=== PATIENT | male | born 1970 | race Caucasian/White ===

== ENCOUNTER 2025-03-05 06:18 | Emergency (ER) | payer OTHER, SELFPAY ==
[2025-03-05 06:19] VITALS: BP 102/73; PULSE 53; RESP 16; TEMP 36.7; O2SAT 100; BMI 23.8
--- NOTE | 2025-03-05 07:16 | CT_ITS ---
PROCEDURE: ORB SELLA POST FOSSA EAR W/O 03/05/2025 REASON FOR EXAM: ACUTE VERTIGO, CHRONIC LEFT EAR SX TECHNIQUE: ORB SELLA POST FOSSA EAR W/O CONTRAST: None One or more dose reduction techniques were used (e.g., Automated exposure control, adjustment of the mA and/or kV according to patient size, use of iterative reconstruction technique). RADIATION DOSE SUMMARY: CTDlvol: 67.58 mGy DLP: 734.52 mGycm COMPARISON: None FINDINGS: Globes: Unremarkable Extraocular Muscles: Unremarkabl Orbits: Unremarkable The mastoid bones are unremarkable. The middle ear cavity is unremarkable. Bones: Unremarkable Other: Visualized paranasal sinuses and intracranial structures: Unremarkable CT/Orb Sella Post Fossa Ear w/o IMPRESSION: No acute abnormality is seen. Reading Location: [place] [id number]
--- NOTE | 2025-03-05 07:18 | EDS_ITS ---
HPI History of Present Illness Chief Complaint: Abd Pain Informant: patient, spouse/S.O. and EMS Narrative Narrative: 54-year-old Religion male presenting for vomiting for 2 days. He is a fairly poor informant. He denies having any abdominal pain. No diarrhea, no fevers or chills, no known sick contacts, no suspicious food intake and no travel out of the area. He does not offer any other information but after performing ROS, it seems that he has been nauseated off and on for the past 9 days, and has been having episodes of dizziness where he feels like things are spinning and he is off balance and that has been worse for the past 2 days and linked to the episodes of nausea and vomiting. As I first evaluated him he is vomiting, and confirms that the dizziness was more prominent right then. Some positions are worse than others but he cannot remember exactly how or what ones. He states that he has had some left ear discomfort since last winter. PFSH PFSH Medical History no medical history Home Medications ?Medication ?Instructions ?Recorded ?Last Taken ?Type amoxicillin 875 mg-potassium 875 mg PO Q12H #20 TABLET S 03/05/25 Unknown Rx clavulanate 125 mg tablet meclizine 25 mg tablet 25 mg PO TID PRN dizziness # 20 tabs 03/05/25 Unknown Rx multivitamin 1 tab PO DAILY 03/05/25 Unkn own History promethazine 25 mg tablet 25 mg PO Q6H PRN PRN Nausea #15 03/05/25 Unknown Rx TABLETS sertraline 25 mg tablet (Zoloft) 25 mg PO DAILY Unknown History Allergy/AdvReac Type Severity Reaction Status Date / Time No Known Allergies Allergy Verified 03/05/25 06:24 Social History Smoking Status: Never smoker ROS ROS ED Constitutional Constitutional ED: Denies chills or fever(s) Eyes Eyes: Denies change in vision or diplopia ENT ENT ED: Reports other Details: Intermittent dizziness. Left ear discomfort but denies pain or discharge. Sometimes has trouble hearing out of the left ear. ; Denies ear pain, rhinorrhea or sore throat Cardiovascular Cardiovascular: Denies chest pain or palpitations Respiratory/Chest Respiratory/Chest: Denies cough or dyspnea Gastrointestinal Gastrointestinal: Reports nausea and vomiting; Denies abdominal pain or diarrhea Genitourinary Genitourinary ED: Denies dysuria or hematuria Musculoskeletal Musculoskeletal: Denies back pain or neck pain Integumentary Denies abscess or rash Neurologic Neurologic: Reports as per HPI, abnormal gait, abnormal hearing, disequilibrium and dizziness; Denies headache(s), paresthesias or weakness Psychiatric Psychiatric: Denies anxiety or suicidal thoughts EXAM Physical Exam Const Vital Signs: 03/05/25 06:19 03/05/25 08:19 Temperature 98.0 F Temperature Source Oral Pulse Rate 53 L 50 L Respiratory Rate 16 Blood Pressure 102/73 96/47 L Blood Pressure Mean 82 63 Pulse Ox 100 Oxygen Delivery Method Room Air Positive well nourished and well developed General Appearance ED: well developed and NAD HEENT Reports moist mucous membranes normocephalic and atraumatic Eyes PERRL and EOMs intact bilaterally Eyes Narrative: No direction change nystagmus but there is right horizontal nystagmus. No vertical or rotatory nystagmus. Visual dominguez are intact. Neck full ROM and supple Resp normal respiratory effort and clear to auscultation bilaterally Cardio regular rate, regular rhythm and no murmurs Rate: Negative for bradycardia or tachycardic GI non-tender and non-distended Auscultation: normoactive bowel sounds Palpation: soft Back/Spine no CVA tenderness General Back: other FROM Extremity normal to inspection General Extremety ED: Negative for edema, pulses abnormal or tenderness General Extremity: Negative for edema or pulses abnormal Neuro oriented x3, CN's II-XII intact bilaterally and no sensory deficits noted Neuro Narrative: Abnormal jolt test. Normal skew test. Normal [id number] and [id number] bilaterally. Sensorium / Orientation: awake and alert Motor Exam: strength 5/5 throughout Psych mental status grossly normal Skin no rashes or lesions noted and no wounds MDM MDM MDM Narrative Medical decision making narrative: Patient seems to be having peripheral vertigo, and chronic left ear symptoms although he is not having pain right now, his left TM looks like he could have an effusion and there is some erythema which may indicate infection. Given the chronicity of the symptoms I did a CT, I reviewed the images and the results which I agree with, it is unremarkable. In the meantime, labs were obtained which were unremarkable and he was given IV Zofran, meclizine, and on reevaluation he is not really not feeling any better even though he is not vomiting anymore. Therefore he was additionally given some benzodiazepine and Reglan IV along with some IV fluids because of vomiting for couple days and family concerned about him being a little dehydrated; he was a little bit prerenal. The medicines and fluids really helped him feel better after this and he is able to move around without feeling vertiginous. When I spoke with the family about all of this and my recommendation that he be referred to otolaryngology, at this point they state that his doctor has been making appointments for ENT but they keep getting canceled and moved, he was supposed to have an appointment tomorrow but it got moved to next week, the same day that his doctor has apparently set him up for an MRI, presumably of the brain. At this time I think reasonable to treat him empirically for a possible left otitis media given the asymmetry of the TM given its appearance, as well as symptomatic treatment for the vertigo and having him see ENT next week as scheduled. Also will prescribe him some promethazine for nausea. Lab Data Attestation: I reviewed the patient's lab results. Labs: Laboratory Results - last 24 hr 03/05/25 05:45 WBC 8.6 RBC 5.46 Hgb 16.0 Hct 46.3 MCV 84.8 MCH 29.3 MCHC 34.6 RDW Std Deviation 38.7 RDW Coeff of Regina 12.6 Plt Count 182 MPV 10.4 Immature Gran % (Auto) 0.200 Neut % (Auto) 67.5 Lymph % (Auto) 25.1 Jewell % (Auto) 6.7 Eos % (Auto) 0.3 Baso % (Auto) 0.2 Absolute Neuts (auto) 5.8 Absolute Lymphs (auto) 2.16 Nucleated RBC % 0 Sodium 137 Potassium 4.0 Chloride 100 Carbon Dioxide 23.6 Anion Gap 13 BUN 21 H Creatinine 0.93 Estim Creat Clear Calc 76.03 Est GFR (MDRD) Non-Af 97 BUN/Creatinine Ratio 22.4 H Glucose 105 H Calcium 10.0 Radiography Diagnostic Testing: Clinical Impression(s) from Imaging Studies CT Orbit Sella Inner 03/05/25 07:16 IMPRESSION: No acute abnormality is seen. Reading Location: [facility] Discharge Plan Triage Chief Complaint: Abd Pain ED Provider: Joseluis Jean Dx/Rx/DC Orders Clinical Impression: Peripheral vertigo involving left ear, Acute left otitis media, Mild dehydration Instructions: Vertigo Inner Ear Problems, ED Otitis Media Adult Prescriptions: New meclizine 25 mg tablet 25 mg PO TID PRN (Reason: dizziness) Qty: 20 0RF promethazine 25 mg tablet 25 mg PO Q6H PRN PRN (Reason: Nausea) Qty: 15 0RF amoxicillin-pot clavulanate 875-125 mg tablet 875 mg PO Q12H Qty: 20 0RF No Action sertraline [Zoloft] 25 mg tablet 25 mg PO DAILY multivitamin Tablet 1 tab PO DAILY Primary Care Provider: David Montez Referrals: David Montez DO [Primary Care Provider] - (and ENT as scheduled) Print Language: Irish Disposition Disposition: Home, Self Care
[2025-03-05 07:36] LABS: Hematocrit 46.3 % (40-54); Hemoglobin 16.0 g/dL (13.0-16.5); Immature Granulocytes Count 0.020 X10^3/uL (0.0-0.0); Mean Corp Hgb Conc 34.6 g/dL (32-36); Mean Corpuscular Volume 84.8 fL (80-94); Mean Platelet Vol. 10.4 fl (6.2-12.0); NRBC Flagged by Analyzer 0 % (0-5); Platelet Count 182 K/mm3 (150-450); RBC Distribution Width CV 12.6 % (11.6-14.6); RBC Distribution Width SD 38.7 fl (35.1-43.9); Red Blood Count 5.46 M/mm3 (4.6-6.2); White Blood Count 8.6 K/mm3 (4.4-11.0)
[2025-03-05 08:07] LABS: Anion Gap 13 (5-15); BUN 21 mg/dL (4-19); BUN/Creat Ratio 22.4 RATIO (10-20); Calcium,Total 10.0 mg/dL (7.6-11.0); Carbon Dioxide 23.6 mmol/L (21.0-32.0); Chloride 100 mmol/L (98-108); Estimated Creatinine Clearance 76.03 ml/min (50-250); Glucose 105 mg/dL (70-99); Potassium 4.0 mmol/L (3.3-5.1)
[2025-03-05 08:19] VITALS: BP 96/47; PULSE 50
[2025-03-05] MEDS: 0.9% Normal Saline (1000mL) 1,000 ML 999 ML IV (09:14)
[2025-03-05] MEDS: Lorazepam 2 MG/ML WCH Syringe 0.5 MG IV (09:14)
[2025-03-05 10:00] VITALS: BP 102/64; PULSE 54
[2025-03-05 11:03] VITALS: BP 107/67; PULSE 58; RESP 15; TEMP 36.6; O2SAT 100
== END 2025-03-05 11:04 | disposition home or self-care (01) ==
PROVIDERS: Emergency Provider Emergency Medicine; PCP Family Medicine; Visit Provider Emergency Medicine
DX: H66.92 Otitis media, unspecified, left ear (principal); R11.2 Nausea with vomiting, unspecified; H81.392 Other peripheral vertigo, left ear
CPT/HCPCS: 70480; 80048; 85025; 96361; 96374; 96375; 99285; J2405

== ENCOUNTER 2025-03-11 05:17 | Emergency (ER) | payer OTHER, SELFPAY ==
[2025-03-11] VITALS (23 sets, daily range): BP systolic 117–158; BP diastolic 77–104; PULSE 46–123; RESP 12–24; TEMP 35–36.6; O2SAT 97–100; BMI 24.3
--- NOTE | 2025-03-11 05:25 | CT_ITS ---
EXAM: NONCONTRAST CT SCAN OF THE HEAD TECHNIQUE: Serial axial series through the head were obtained without contrast. 2-D coronal and sagittal reformats were then obtained. FINDINGS: Brain: There is a 2.8 x 3.0 by 3.1 cm circumscribed dense mass in the left cerebellopontine angle with an adjacent 3.6 x 2.3 cm low-density component with effacement of the 4th ventricle, miriam and midbrain and a component of hemorrhage at the anterior inferior margin. Paranasal sinuses: Well-aerated Mastoid air cells: Well-aerated. Calvarium: The bony calvarium is intact. Orbits: The bilateral globes are symmetric, without retrobulbar compressive mass lesion or hemorrhage. CT/Brain/Head without Contrast IMPRESSION: There is a 2.8 x 3.0 by 3.1 cm circumscribed dense mass in the left cerebellopo ntine angle with an adjacent 3.6 x 2.3 cm low-density component with effacement of the 4th ventricle, miriam and midbrain a nd a component of hemorrhage at the anterior inferior margin. The differential includes aneurysm or tumor with acute hemorr hagic components. Emergent neurosurgical consultation is recommended. Critical results were discussed with Dr. Boaz Bowie by Dr. Akbar at the t [place] of dictation. Reading Location: [facility]
--- NOTE | 2025-03-11 05:26 | EX.ED.VIS.HA ---
HPI History of Present Illness Chief Complaint: Headache Informant: patient Onset/Context/Timing Onset: Today Context: Gradual Timing: Continuous Location: Left posterior lateral headache. Current Severity: Moderate Maximum Severity: Moderate Associated Symptoms/Injury Associated Symptoms: Positive for Nausea and Vomiting; Negative for Fever Injury - LO: Negative for Direct Trauma, Fall or Assault Narrative Narrative: 54-year-old male past medical history of depression. States has had a headache since 3 AM. Associated nausea vomiting. Describes as a left posterior headache. No fall injury or trauma. No fever. No neck pain. Denies being on any blood thinners. No history of aneurysms or intracranial surgery. Prior similar symptoms: No Recent Illness/Hospitalization: No PFSH PFSH Home Medications ?Medication ?Instructions ?Recorded ?Last Taken ?Type amoxicillin 875 mg-potassium 875 mg PO Q12H #20 TABLETS 03/05/25 Unknown Rx clavulanate 125 mg tablet meclizine 25 mg tablet 25 mg PO TID PRN dizziness #20 tabs 03/05/25 Unknown Rx multivitamin 1 tab PO DAILY 03/05/25 Unknown History promethazine 25 mg tablet 25 mg PO Q6H PRN PRN Nausea #15 03/05/25 Unknown Rx TABLETS sertraline 25 mg tablet (Zoloft) 25 mg PO DAILY 03/05/25 Unknown History Allergy/AdvReac Type Severity Reaction Status Date / Time No Known Allergies Allergy Verified 03/11/25 05:18 Social History Smoking Status: Never smoker ROS ROS ED ROS Narrative Headache. Nausea and vomiting today. Constitutional Constitutional ED: Denies chills Eyes Eyes: Denies blurry vision ENT ENT ED: Denies ear pain Cardiovascular Cardiovascular: Denies chest pain Respiratory/Chest Respiratory/Chest: Denies cough or dyspnea Gastrointestinal Gastrointestinal: Reports nausea and vomiting; Denies abdominal pain, constipation, diarrhea or melena Genitourinary Genitourinary ED: Denies dysuria or hematuria Musculoskeletal Musculoskeletal: Denies arthralgias or back pain Integumentary Denies abscess or Abrasions Neurologic Neurologic: Reports headache(s) Psychiatric Psychiatric: Denies anxiety or depression Endocrine Endocrinology: Denies polydipsia Hematologic/Lymphatic Hematologic/Lymphatic: Denies easy bleeding, easy bruising or lymphadenopathy Allergic/Immunologic Allergic/Immunologic ED: Denies mouth swelling, tongue swelling or urticaria EXAM Physical Exam Narrative Exam Narrative: 54-year-old male sitting upright in bed. Vital signs are stable afebrile. He does not look septic toxic. H EENT exam pupils are react to light. Active motions are intact. No facial droop. Tongue midline. There is no signs of trauma to his face or scalp. No hematoma. Nontender. Neck nontender no meningismus. No lymphadenopathy. Back nontender. Lungs clear to auscultation bilaterally. Heart regular rhythm rate about 50 no murmur. Chest wall ribs nontender. Abdomen soft nontender. No peritoneal signs. Moving all 4 extremities. 5 of 5 sidewalk inspector strength. Dorsi plantarflexion intact. No drift. Neurologic exam is somewhat hard of hearing. He is answering questions following commands. Bilateral equal symmetrical sidewalk inspector strength. Bilateral dorsi plantarflexion. No drift of either upper or lower extremities. NIH score is 0. Const Vital Signs: 03/11/25 05:18 03/11/25 05:25 03/11/25 05:52 Temperature 95 F L 97.5 F L Temperature Source Temporal Oral Pulse Rate 48 L 83 46 L Respiratory Rate 18 16 17 Blood Pressure 142/85 H 142/85 H 156/104 H Blood Pressure Mean 104 104 121 Blood Pressure Position Blood Pressure Location Pulse Ox 98 99 100 Oxygen Delivery Method Room Air Room Air Room Air 03/11/25 05:54 03/11/25 06:06 03/11/25 06:07 Temperature 95.8 F L 95.9 F L Temperature Source Core Core Pulse Rate 52 L 62 Respiratory Rate 17 21 H Blood Pressure 157/96 H 157/96 H Blood Pressure Mean 116 116 Blood Pressure Position Semi-Fowlers Blood Pressure Location Right Arm Pulse Ox 100 100 Oxygen Delivery Method Room Air Room Air Room Air 03/11/25 06:15 03/11/25 06:30 03/11/25 06:32 Temperature 96.4 F L 96.8 F L Temperature Source Core Core Pulse Rate 71 59 L Respiratory Rate 23 H 12 Blood Pressure 149/95 H 150/83 H 150/83 H Blood Pressure Mean 113 105 105 Blood Pressure Position Blood Pressure Location Pulse Ox 100 99 Oxygen Delivery Method Room Air Room Air 03/11/25 06:38 03/11/25 06:42 03/11/25 06:45 Temperature 97.1 F L 97.2 F L Temperature Source Core Pulse Rate 78 88 Respiratory Rate 18 16 Blood Pressure 151/98 H 151/98 H 158/95 H Blood Pressure Mean 115 115 116 Blood Pressure Position Blood Pressure Location Pulse Ox 98 97 Oxygen Delivery Method Room Air 03/11/25 06:46 03/11/25 06:52 03/11/25 07:00 Temperature 97.5 F L Temperature Source Core Pulse Rate 107 H Respiratory Rate 20 H Blood Pressure 158/95 H 147/85 H 140/77 H Blood Pressure Mean 116 105 98 Blood Pressure Position Blood Pressure Location Pulse Ox 100 Oxygen Delivery Method Room Air Positive well nourished and well developed; Negative for obese, cachectic, contractures or unkempt General Appearance ED: well developed; Negative for unkempt, cachectic, contractures, cyanotic or diaphoretic Nutritional Appearance: Negative for cachectic or obese HEENT Reports moist mucous membranes atraumatic; Negative for trauma, tenderness, temporal artery tenderness or vesicular rash Face and Sinus: Negative for sinus tenderness Eyes PERRL and EOMs intact bilaterally Neck no lymphadenopathy, supple, no meningeal signs and no JVD General: Negative for tenderness Resp normal respiratory effort and clear to auscultation bilaterally Cardio regular rhythm, S1 normal heart sound, S2 normal heart sound and no murmurs; Negative for regular rate Rate: bradycardia GI non-tender and non-distended Auscultation: normoactive bowel sounds Palpation: soft; Negative for firm, tender or guarding Back/Spine no CVA tenderness General Back: Negative for CVA tenderness Cervical Spine: Negative for cervical spine tenderness Thoracic Spine / Upper Back: Negative for thoracic spinal tenderness Lumbar Spine / Lower Back: Negative for lumbar spinal tenderness Extremity normal to inspection and full ROM General Extremety ED: Negative for edema or tenderness General Extremity: Negative for edema Neuro oriented x3 and CN's II-XII intact bilaterally Sensorium / Orientation: awake, alert, oriented to person, oriented to place and oriented to time Coordination / Balance: [id number] test normal Speech: speech normal Motor Exam: strength 5/5 throughout Psych mental status grossly normal Appearance: Negative for unkempt Mood & Affect: Negative for depressed Skin General Skin Exam: elasticity normal; Negative for turgor normal or jaundice Lesions: no lesions Rashes: no rashes NIHSS NIHSS Initial: 1a Level of Consciousness: 0 1b LOC Questions (Score 2 if aphasic/stupor): 0 1c LOC Commands (Only score 1st attempt): 0 2 Best Gaze (If aphasic, use reflexive mvmts.): 0 3 Visual: 0 4 Facial Palsy: 0 5 Motor Arm Right (UN = amputation/fusion): 0 5 Motor Arm Left: 0 6 Motor Leg Right: 0 6 Motor Leg Left: 0 7 Limb ataxia (Only + if out of proportion): 0 8 Sensory (Aphasia/stupor=0 or 1, coma=2): 0 9 Best Language: 0 10 Dysarthria (mute, coma=2, intubated=UN): 0 11 Extinction and Inattention (only scored if +): 0 Total Score: 0 MDM MDM MDM Narrative Medical decision making narrative: 54-year-old male with left posterior headache nausea vomiting. CAT scans have been obtained. Plain CT of the brain shows a moderate intracranial hemorrhage. I have already discussed the results with the patient and his and family. We are awaiting formal radiology interpretation. Patient [facility] to be [facility] an [facility]. [facility] the first hospital [facility]. I spoke to [facility] they are excepting the patient in transfer. Patient was adamant that he did not want to go by helicopter due to his police. We are trying to get a ground squad. Repeat exam at 6 AM with no significant change. Patient is still awake and alert. Still answering questions. Protecting his airway. Patient's blood pressure steadily increased and I will be started on nicardipine drip. Patient's mental status deteriorated his speech was getting more slurred he was complaining of numbness on his right side. Given the severity of his intracranial bleed and the location along with him being at least an hour away from the referring hospital and going by ground because he refused to go by air I made the decision to protect his airway. Discussed that with both he and his family and they were comfortable with the plan. Patient was given 20 mg of etomidate and 100 of succinylcholine. He had upper dentures in which I took out. He was intubated on the first attempt with a 7-1/2 ET tube with good breath sounds bilaterally. Good color change and good vapor in the ET tube. Bilateral breath sounds were heard postintubation. We are awaiting a post enervation chest x-ray. His sats stayed 97% or higher the entire time. Intubated on the first attempt. Patient be placed on a propofol drip. History & Record Review Discussion w/independent historian: Patient Additional record(s) reviewed:: Prior inpatient record, Prior outpatient record, Prior ED visit and Prior labs Lab Data Lab results narrative: CBC shows a white count of 15.6. H&H 15 and 44. Platelets 170. Chemistries show a gap of 18. BUN and creatinine of 20 and 1. Glucose 183. PT and INR are 13 and 1. PTT 26. Labs: Laboratory Results - last 24 hr 03/11/25 05:22 WBC 15.6 H RBC 5.25 Hgb 15.7 Hct 44.4 MCV 84.6 MCH 29.9 MCHC 35.4 RDW Std Deviation 36.4 RDW Coeff of Regina 12.0 Plt Count 170 MPV 10.3 Immature Gran % (Auto) 0.700 Neut % (Auto) 85.1 H Lymph % (Auto) 9.8 L [place] % (Auto) 4.1 Eos % (Auto) 0.1 Baso % (Auto) 0.2 Absolute Neuts (auto) 13.2 H Absolute Lymphs (auto) 1.52 Nucleated RBC % 0 PT 13.7 INR 1.0 APTT 26.1 Sodium 138 Potassium 4.2 Chloride 100 Carbon Dioxide 20.4 L Anion Gap 18 H BUN 20 H Creatinine 1.09 Estim Creat Clear Calc 64.87 Est GFR (MDRD) Non-Af 81 BUN/Creatinine Ratio 18.3 Glucose 183 H Calcium 9.7 Radiography Chest X-Ray - ED: 1 View, Read by ED Physician, Normal, Heart, Lungs, Mediastinum, Bony Structures, No Acute Disease, Chronic Changes and - (Endotracheal tube in good position above the araceli. OG in the stomach.) Diagnostic Testing: Clinical Impression(s) from Imaging Studies Brain CT 03/11/25 05:25 IMPRESSION: There is a 2.8 x 3.0 by 3.1 cm circumscribed dense mass in the left cerebellopontine angle with an adjacent 3.6 x 2.3 cm low-density component with effacement of the 4th ventricle, miriam and midbrain and a component of hemorrhage at the anterior inferior margin. The differential includes aneurysm or tumor with acute hemorrhagic components. Emergent neurosurgical consultation is recommended. Critical results were discussed with Dr. Boaz Bowie by Dr. Akbar at the time of dictation. Reading Location: [facility] Chest x-ray, portable, single view interpreted by myself shows ET tube in good position above the araceli. Bilateral lungs are inflated. Normal cardiac silhouette. No acute process. OG also in good position. Procedures Other Procedures Procedure(s): Endotracheal intubation. Due to the patient's intracranial bleed and worsening mental status he was intubated prior to transfer. First attempt. Given 20 of etomidate and 100 succinylcholine. 7F ET tube at 21 at the lips. Chest x-ray shows ET tube in good position it is a 21 the lips will advance it to 22 he is above the araceli. Critical Care Time Critical Care Time: Yes Critical care time (excluding procedures): 30-74 minutes, Including time spent:, Discussing w/Patient &/or Family/Margin Trimmer, Discussing w/Consultants, Arranging Admission or Transfer, Performing Direct Patient Care at Bedside and - (35 minutes) Discharge Plan Triage Chief Complaint: Headache ED Provider: Boaz Bowie Dx/Rx/DC Orders Clinical Impression: Acute headache, Spontaneous intracranial hemorrhage, Endotracheally intubated Prescriptions: No Action sertraline [Zoloft] 25 mg tablet 25 mg PO DAILY multivitamin Tablet 1 tab PO DAILY meclizine 25 mg tablet 25 mg PO TID PRN (Reason: dizziness) Qty: 20 0RF promethazine 25 mg tablet 25 mg PO Q6H PRN PRN (Reason: Nausea) Qty: 15 0RF amoxicillin-pot clavulanate 875-125 mg tablet 875 mg PO Q12H Qty: 20 0RF Primary Care Provider: David Montez Referrals: David Montez DO [Primary Care Provider] - Print Language: Japanese Disposition Disposition: Acute Care Hospital
--- OUTSIDE RECORDS SUMMARY | 2025-03-11 05:42 | XMS RPT_ITS | CCD ---
Author Organization [facility] Inform ion Partnership [facility] Care Team Providers Care Accounting Associate Name Role Phone Dr. David Lai DO Primary Care Provider [phone] Ted STALLWORTH, Dr. Huggins Emergency Provider JOELLE STALLWORTH, DR DAVID Yan Attending Reyna LAI MD, DR DAVID Yan Primary Care UnavailJoseluis Patel Attending Unavailable David Lai Primary Care Unavailable Medications Current Medications Medication Drug Class(es) Dates Sig (Normalized) Sig (Original) amoxicillin 875 mg / clavulanate 125 mg oral tablet (1 source) Penicillin-class Antibacterial Start: 03-05-2025 take 1 tablet by mouth every twelve hours Amoxicillin-Pot Clavulanate 875-125 mg tablet Active 875 mg PO Q12H 20 0 March 05, 2025 12:00am meclizine hydrochloride 25 mg oral tablet (1 source) Antiemetic Start: 03-05-2025 take 1 tablet by mouth three times daily as needed for dizziness Meclizine 25 mg tablet Active 25 mg PO THREE TIMES A DAY as needed for dizziness 20 0 March 05, 2025 12:00am Multivitamin tablet (1 source) Start: 03-05-2025 Multivitamin tablet Active 1 {tbl} PO DAILY March 05, 2025 12:00am promethazine hydrochloride 25 mg oral tablet (1 source) Phenothiazine Start: 03-05-2025 take 1 tablet by mouth every six hours as needed for nausea Promethazine 25 mg tablet Active 25 mg PO EVERY 6 HOURS NEEDED as needed for Nausea 15 0 March 05, 2025 12:00am sertraline 25 mg oral tablet (1 source) Serotonin Reuptake Inhibitor Start: 03-05-2025 take 1 tablet by mouth once daily Sertraline (Zoloft) 25 mg tablet Active 25 mg PO DAILY March 05, 2025 12:00am Problems Problem Classification Problem Date Documented Da te Episodic/Chronic Conditions associated with dizziness or vertigo (1 source) Peripheral vertigo; Translations: [Other peripheral vertigo, left ear] 03-05-2025 Episodic Fluid and electrolyte disorders (1 source) Mild dehydration; Translations: [Dehydration] 03-05-2025 Episodic Otitis media and related conditions (1 source) Acute left otitis media; Translations: [Otitis media, unspecified, left ear] 03-05-2025 Episodic Unclassified (1 source) and ENT as scheduled Results Test Name Value Interpretation Reference Range Facility Absolute lymphocyte countOrd ered By: Joseluis Jean on 03-05-2025 Lymphocytes Auto (Unsp spec) [#/Vol] 2.16 10*3/uL 0.83-4.51 [facility] Absolute neutrophil countOrd ered By: Joseluis Jean on 03-05-2025 Neutrophils (Bld) [#/Vol] 5.8 10*3/uL 2.0-7.7 [facility] Anion gap in Serum or Plasma Ordered By: Joseluis Jean on 03-05-2025 Anion gap [Moles/Vol] 13 mmol/L 5-15 [facility] Automated lymphocyte count a s percentage of total leukocytesOrdered By: Joseluismark Jean on 03-05-2025 Lymphocytes/100 WBC Auto (Unsp spec) 25.1 % [facility] BUN/creatinine ratioOrdered By: Joseluismark Jean on 03-05-2025 Urea nitrogen/Creatinine [Mass ratio] 22.4 mg/mg High 05-13 [facility] Basic Metabolic Profile (BMP )on 03-05-2025 BUN/CRE 22.4 RATIO High [facility] Comment on above: Performed By: #### L 100.0100, L500.2500 #### [facility] [address] [place], [address] Calcium [Mass/Vol] 10.0 mg/dL Normal 7.6-11.0 [facility] Comment on above: Performed By: #### L 100.0100, L500.2500 #### [facility] [address] [place], [address] Chloride [Moles/Vol] 100 mmol/L Normal 98-108 [facility] Comment on above: Performed By: #### L 100.0100, L500.2500 #### [facility] [address] [place], [address] CO2 [Moles/Vol] 23.6 mmol/L Normal 21.0-32.0 [facility] Comment on above: Performed By: #### L 100.0100, L500.2500 #### [facility] [address] [place], [address] Creatinine [Mass/Vol] 0.93 mg/dL Normal 0.70-1.20 [facility] Comment on above: Performed By: #### L 100.0100, L500.2500 #### [facility] [address] [place], [address] ECRCL 76.03 ml/min Normal 50-250 [facility] Comment on above: Performed By: #### L 100.0100, L500.2500 #### [facility] [address] [place], [address] GAP 13 Normal 5-15 [facility] Comment on above: Performed By: #### L 100.0100, L500.2500 #### [facility] [address] [place], [address] GFR/1.73 sq M.predicted among non-blacks MDRD (S/P/Bld) [Vol rate/Area] 97 mL/min/{1.73_m2} Normal >60 [facility] Comment on above: Result Comment: mL/m in/1.73m2 CKD-EPI Creatinine Equation (2020) Performed By: #### L 100.0100, L500.2500 #### [facility] [address] [place], [address] Glucose [Mass/Vol] 105 mg/dL High 70-99 [facility] Comment on above: Performed By: #### L 100.0100, L500.2500 #### [facility] [address] [place], [address] Potassium [Moles/Vol] 4.0 mmol/L Normal 3.3-5.1 [facility] Comment on above: Performed By: #### L 100.0100, L500.2500 #### [facility] [address] [place], [address] Sodium [Moles/Vol] 137 mmol/L Normal 133-145 [facility] Comment on above: Performed By: #### L 100.0100, L500.2500 #### [facility] [address] [place], [address] Urea nitrogen [Mass/Vol] 21 mg/dL High 4-19 [facility] Comment on above: Performed By: #### L 100.0100, L500.2500 #### [facility] [address] [place], [address] Basophil percentageOrdered B y: Joseluis Jean on 03-05-2025 Basophils/100 WBC (Bld) 0.2 % 0-1 [facility] CBC W/Diff, Automatedon 02-22 Absolute Lymph 2.16 X10 3/uL Normal 0.83-4.51 [facility] Comment on above: Performed By: #### L 100.0100, L500.2500 #### [facility] [address] [place], [address] Absolute Neut 5.8 X10 3/uL Normal 2.0-7.7 [facility] Comment on above: Performed By: #### L 100.0100, L500.2500 #### [facility] [address] [place], [address] Basophils/100 WBC (Bld) 0.2 % Normal 0-1 [facility] Comment on above: Performed By: #### L 100.0100, L500.2500 #### [facility] [address] [place], [address] Eosinophils/100 WBC (Bld) 0.3 % Normal 0-5 [facility] Comment on above: Performed By: #### L 100.0100, L500.2500 #### [facility] [address] [place], [address] Erythrocyte distribution width (RBC) [Ratio] 12.6 % Normal 11.6-14.6 [facility] Comment on above: Performed By: #### L 100.0100, L500.2500 #### [facility] [address] [place], [address] Hematocrit (Bld) [Volume fraction] 46.3 % Normal 40-54 [facility] Comment on above: Performed By: #### L 100.0100, L500.2500 #### [facility] [address] [place], [address] Hemoglobin (Bld) [Mass/Vol] 16.0 g/dL Normal 13.0-16.5 [facility] Comment on above: Performed By: #### L 100.0100, L500.2500 #### [facility] [address] [place], [address] IG% 0.200 Normal 0.0-0.9 [facility] Comment on above: Result Comment: IG% - Immature Granulocytes (promyelocytes, myelocytes and metamyelocytes) > 1% indicates that a LEFT SHIFT is Present. Performed By: #### L 100.0100, L500.2500 #### [facility] [address] [place], [address] Lymphocytes/100 WBC (Bld) 25.1 % Normal 19-41 [facility] Comment on above: Performed By: #### L 100.0100, L500.2500 #### [facility] [address] [facility] [place], [address] MCH (RBC) [Entitic mass] 29.3 pg Normal 27.0-32.0 [facility] Comment on above: Performed By: #### L 100.0100, L500.2500 #### [facility] [address] [place], [address] MCHC (RBC) [Mass/Vol] 34.6 g/dL Normal 32-36 [facility] Comment on above: Performed By: #### L 100.0100, L500.2500 #### [facility] [address] [place], [address] MCV (RBC) [Entitic vol] 84.8 fL Normal 80-94 [facility] Comment on above: Performed By: #### L 100.0100, L500.2500 #### [facility] [address] [place], [address] Monocytes/100 WBC (Bld) 6.7 % Normal 0-10 [facility] Comment on above: Performed By: #### L 100.0100, L500.2500 #### [facility] [address] [place], [address] Neutrophils/100 WBC (Bld) 67.5 % Normal 47-70 [facility] Comment on above: Performed By: #### L 100.0100, L500.2500 #### [facility] [address] [place], [address] Nucleated RBC (Bld) [#/Vol] 0 10*3/uL Normal 0-5 [facility] Comment on above: Performed By: #### L 100.0100, L500.2500 #### [facility] [address] [place], [address] Platelet mean volume (Bld) [Entitic vol] 10.4 fL Normal 6.2-12.0 [facility] Comment on above: Performed By: #### L 100.0100, L500.2500 #### [facility] [address] [place], [address] Platelets (Bld) [#/Vol] 182 10*3/uL Normal 150-450 [facility] Comment on above: Performed By: #### L 100.0100, L500.2500 #### [facility] [address] [place], [address] RBC (Bld) [#/Vol] 5.46 10*6/uL Normal 4.6-6.2 [facility] Comment on above: Performed By: #### L 100.0100, L500.2500 #### [facility] [address] [place], [address] RDW SD 38.7 fl Normal 35.1-43.9 [facility] Comment on above: Performed By: #### L 100.0100, L500.2500 #### [facility] [address] [place], [address] WBC (Bld) [#/Vol] 8.6 10*3/uL Normal 4.4-11.0 [facility] Comment on above: Performed By: #### L 100.0100, L500.2500 #### [facility] [address] [place], [address] Carbon dioxide, total [Moles /volume] in Central venous bloodOrdered By: Joseluis Jean on 03-05-2025 CO2 [Moles/Vol] 23.6 mmol/L 21.0-32.0 [facility] Chloride assayOrdered By: Brenden Jean on 03-05-2025 Chloride [Moles/Vol] 100 mmol/L 98-108 [facility] Emergency Department Summary on 03-05-2025 Emergency Department Summary [facility] Medical Records Department [address] [place] [address] Emergency Department Summary 03/05/25 MR#: [id number] Acct: [id number] Name: ZAHIRA TURPIN Rep #: [id number] : 1970 54 From: Joseluis Jean MD PCP: Dr. David Lai MD Status:REG ER Location: ED HPI History of Present Illness Chief Complaint: Abd Pain Informant: patient, spouse/S.O. 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 He is a fairly poor informant. He denies having any abdominal pain. No diarrhea, no fevers or chills, no known sick contacts, no suspicious food intake and no travel out of the area. He does not offer any other information but after performing ROS, it seems that he has been nauseated off and on for the past 9 days, and has been having episodes of dizziness where he feels like things are spinning and he is off balance and that has been worse for the past 2 days and linked to the episodes of nausea and vomiting. As I first evaluated him he is vomiting, and confirms that the dizziness was more prominent right then. Some positions are worse than others but he cannot remember exactly how or what ones. He states that he has had some left ear discomfort since last winter. PFSH PFSH Medical History no medical history Home Medications ???Medication ???Instructions ???Recorded ???Last Taken ???Type amoxicillin 875 mg-potassium 875 mg PO Q12H #20 TABLETS 5 Unknown Rx clavulanate 125 mg tablet meclizine 25 mg tablet 25 mg PO TID PRN dizziness #20 tab s 03/05/25 Unknown Rx multivitamin 1 tab PO DAILY 03/05/25 Unknown Hi story promethazine 25 mg tablet 25 mg PO Q6H PRN PRN Nausea #15 Unknown Rx TABLETS sertraline 25 mg tablet (Zoloft) 25 mg PO DAILY 03/05/25 Unknown Hi story Allergy/AdvReac Type Severity Reaction Status Date / Time No Known Allergies Allergy Verified 03/05/25 06:24 Social History Smoking Status: Never smoker ROS ROS ED Constitutional Constitutional ED: Denies chills or fever(s) Eyes Eyes: Denies change in vision or diplopia ENT ENT ED: Reports other Details: Intermittent dizziness. Left ear discomfort but denies pain or discharge. Sometimes has trouble hearing out of the left ear. ; Denies ear pain, rhinorrhea or sore throat Cardiovascular Cardiovascular: Denies chest pain or palpitations Respiratory/Chest Respiratory/Chest: Denies cough or dyspnea Gastrointestinal Gastrointestinal: Reports nausea and vomiting; Denies abdominal pain or diarrhea Genitourinary Genitourinary ED: Denies dysuria or hematuria Musculoskeletal Musculoskeletal: Denies back pain or neck pain Integumentary Denies abscess or rash Neurologic Neurologic: Reports as per HPI, abnormal gait, abnormal hearing, disequilibrium and dizziness; Denies headache(s), paresthesias or weakness Psychiatric Psychiatric: Denies anxiety or suicidal thoughts EXAM Physical Exam Const Vital Signs: 03/05/25 06:19 03/05/25 08:19 Temperature 98.0 F Temperature Source Oral Pulse Rate 53 L 50 L Respiratory Rate 16 Blood Pressure 102/73 96/47 L Blood Pressure Mean 82 63 Pulse Ox 100 Oxygen Delivery Method Room Air Positive well nourished and well developed General Appearance ED: well developed and NAD HEENT Reports moist mucous membranes normocephalic and atraumatic Eyes PERRL and EOMs intact bilaterally Eyes Narrative: No direction change nystagmus but there is right horizontal nystagmus. No vertical or rotatory nystagmus. Visual dominguez are intact. Neck full ROM and supple Resp normal respiratory effort and clear to auscultation bilaterally Cardio regular rate, regular rhythm and no murmurs Rate: Negative for bradycardia or tachycardic GI non-tender and non-distended Auscultation: normoactive bowel sounds Palpation: soft Back/Spine no CVA tenderness General Back: other FROM Extremity normal to inspection General Extremety ED: Negative for edema, pulses abnormal or tenderness General Extremity: Negative for edema or pulses abnormal Neuro oriented x3, CN's II-XII intact bilaterally and no sensory deficits noted Neuro Narrative: Abnormal jolt test. Normal skew test. Normal wirglt-cb-ffuy and sfft-zt-tlnx bilaterally. Sensorium / Orientation: awake and alert Motor Exam: strength 5/5 throughout Psych mental status grossly normal Skin no rashes or lesions noted and no wounds MDM MDM MDM Narrative Medical decision making narrative: Patient seems to be having peripheral vertigo, and chronic left ear symptoms although he is not having pain right now, his left TM looks like he could have an effusion and there is some erythema which may indicate (more content not included)... Normal [facility] Eosinophil percentageOrdered By: Joseluis Jean on 03-05-2025 Eosinophils/100 WBC (Bld) 0.3 % 0-5 [facility] Erythrocyte distribution wid th ratioOrdered By: Joseluis Jean on 03-05-2025 Erythrocyte distribution width (RBC) [Ratio] 12.6 % 11.6-14.6 [facility] Erythrocyte distribution wid th standard deviationOrdered By: Joseluis Jean on 03-05-2025 Erythrocyte distribution width (RBC) [Ratio] 38.7 fl 35.1-43.9 [facility] Glomerular filtration rate ( GFR) estimation/1.73 sq m using serum, plasma, or whole bOrdered By: Joseluis Jean on 03-05-2025 GFR/1.73 sq M.predicted among non-blacks MDRD (S/P/Bld) [Vol rate/Area] 97 mL/min/{1.73_m2} >60 [facility] Comment on above: mL/min/1.73m2 CKD-EP I Creatinine Equation (2020) Hematocrit Auto (Bld) [Volum e fraction]Ordered By: Joseluis Jean on 03-05-2025 Hematocrit (Bld) [Volume fraction] 46.3 % 40-54 [facility] Hemoglobin measurementOrdere d By: Joseluis Jean on 03-05-2025 Hemoglobin (Bld) [Mass/Vol] 16.0 g/dL 13.0-16.5 [facility] Immature granulocytes/100 WB C Auto (Bld)Ordered By: Joseluis Jean on 03-05-2025 Immature granulocytes/100 WBC (Bld) 0.200 % 0.0-0.9 [facility] Comment on above: IG% - Immature Granu locytes (promyelocytes, myelocytes and metamyelocytes) > 1% indicates that a LEFT SHIFT is Present. MCV (mean corpuscular volume ) determinationOrdered By: Joseluis Jean on 03-05-2025 MCV (RBC) [Entitic vol] 84.8 fL 80-94 [facility] Mean corpuscular hemoglobin (MCH) determinationOrdered By: Joseluis Jean 03-05-2025 MCH (RBC) [Entitic mass] 29.3 pg 27.0-32.0 [facility] Mean corpuscular hemoglobin concentration (MCHC) determinationOrdered By: Joseluis Jean on 03-05-2025 MCHC (RBC) [Mass/Vol] 34.6 g/dL 32-36 [facility] Mean platelet volume determi nationOrdered By: Joseluis Jean on 03-05-2025 Platelet mean volume (Bld) [Entitic vol] 10.4 fL 6.2-12.0 [facility] Monocyte percentageOrdered B y: Joseluis Jean on 03-05-2025 Monocytes/100 WBC (Bld) 6.7 % 0-10 [facility] Neutrophil percentageOrdered By: Joseluis Jean on 03-05-2025 Neutrophils/100 WBC (Bld) 67.5 % 47-70 [facility] Nucleated red blood cell per centageOrdered By: Joseluis Jean on 03-05-2025 Nucleated RBC/100 WBC (Bld) [Ratio] 0 % 0-5 [facility] Orb Sella Post Fossa Ear w/o on 03-05-2025 Orb Sella Post Fossa Ear w/o [facility] Imaging Services [address] [place], [place] [address] Orb Sella Post Fossa Ear w/o MR#: [id number] Acct: [id number] Name: ZAHIRA TURPIN E Rep #: [id number] : 1970 M 54 From: Cesar holder MD PCP: Dr. David Lai MD Status: [facility] ER Study: Orb Sella Post Fossa Ear w/o Date of Exam: 07/18 Exam# [id number] Ordering Dr: Joseluis Jean MD PROCEDURE: ORB SELLA POST FOSSA EAR W/O 03/05/2025 REASON FOR EXAM: ACUTE VERTIGO, CHRONIC LEFT EAR SX TECHNIQUE: ORB SELLA POST FOSSA EAR W/O CONTRAST: None One or more dose reduction techniques were used (e.g., Automated exposure control, adjustment of the mA and/or kV according to patient size, use of iterative reconstruction technique). RADIATION DOSE SUMMARY: CTDlvol: 67.58 mGy DLP: 734.52 mGycm COMPARISON: None FINDINGS: Globes: Unremarkable Extraocular Muscles: Unremarkabl Orbits: Unremarkable The mastoid bones are unremarkable. The middle ear cavity is unremarkable. Bones: Unremarkable Other: Visualized paranasal sinuses and intracranial structures: Unremarkable CT/Orb Sella Post Fossa Ear w/o IMPRESSION: No acute abnormality is seen. Reading Location: [place] [address] CC: Dr. Joseluis Jean MD; Dr. David Lai MD Acupuncture Physician: Signed Normal [facility] Platelet countOrdered By: Brenden Jean on 03-05-2025 Platelets (Bld) [#/Vol] 182 10*3/uL 150-450 [facility] Potassium measurement (mass/ volume)Ordered By: Joseluis Jean on 03-05-2025 Potassium (Unsp spec) [Mass/Vol] 4.0 mmol/L 3.3-5.1 [facility] RBC Auto (Bld) [#/Vol]Ordere d By: Joseluis Jean on 03-05-2025 RBC (Bld) [#/Vol] 5.46 10*6/uL 4.6-6.2 [facility] Serum creatinine measurement (mass/volume)Ordered By: Joseluis Jean on 03-05-2025 Creatinine [Mass/Vol] 0.93 mg/dL 0.70-1.20 [facility] Serum glucose measurement (m ass/volume)Ordered By: Joseluis Jean on 03-05-2025 Glucose [Mass/Vol] 105 mg/dL High 70-99 [facility] Serum or plasma calcium harjinder urement (mass/volume)Ordered By: Joseluis Jean on 03-05-2025 Calcium [Mass/Vol] 10.0 mg/dL 7.6-11.0 [facility] Serum or plasma urea nitroge n measurement (mass/volume)Ordered By: Joseluis Jean on 03-05-2025 Urea nitrogen [Mass/Vol] 21 mg/dL High 4-19 [facility] Sodium levelOrdered By: Timothy Jean on 03-05-2025 Sodium [Moles/Vol] 137 mmol/L 133-145 [facility] White blood cell (WBC) count Ordered By: Joseluis Jean on 03-05-2025 WBC (Bld) [#/Vol] 8.6 10*3/uL 4.4-11.0 [facility] Vital Signs Date Time Vital Sign Value Performing Clinician Gunnar vang 03-05-2025 11:03-0400 Body temperature 97.8 [degF] Dr. David Lai DO Work Phone: [facility] 03-05-2025 11:03-0400 Diastolic blood pressure 67 mm[Hg] Dr. David Lai DO Work Phone: [phone] [address] 03-05-2025 11:03-0400 Heart rate 58 /min Dr. David Lai DO Work Phone: [phone] [address] 03-05-2025 11:03-0400 Respiratory rate 15 /min Dr. David Lai DO Work Phone: [facility] 03-05-2025 11:03-0400 SaO2% (BldA) [Mass fraction] 100 % Dr. David Lai DO Work Phone: [facility] 03-05-2025 11:03-0400 Systolic blood pressure 107 mm[Hg] Dr. David Lai DO Work Phone: [phone] [address] 03-05-2025 06:19-0400 Body height 162.[address] David Lai DO Work Phone: [facility] 03-05-2025 06:19-0400 Body mass index (BMI) [Ratio] 23.8 kg/m2 Dr. David Lai DO Work Phone: [facility] 03-05-2025 06:19-0400 Body weight 62.[address] David Lai DO Work Phone: [facility] Encounters Encounter Date Encounter Type Care Provider Facility Start: 03-05-[address] DAVID LAI MD Fa cility:[facility] Start: 03-05-2025 End: 03-05-2025 Emergency department patient visit Dr. David Lai DO Work Phone: -Emergency Department Work Phone: Procedures Date Procedure Procedure Detail Performing Clinician Start: 03-05-2025 CT of head without contrast Dr. David Lai DO Work Phone: Start: 03-05-[address] David Lai DO Work Phone: Plan of Treatment Date Care Activity Detail Author Start: 03-05-2025 [facility] Patient Education Vertigo Inner Ear Problems ED Otitis Media Adult [facility] Work Phone: Payers Date Payer Category Payer Unknown 2025 Self-pay 1970 Unknown [id number] Unknown [id number] Social History Date Type Detail Facility Start: 03-05-2025 Tobacco smoking stat us [facility] Never smoked tobacco (finding) [facility] Start: 1970 Sex Assigned At Male [facility] Discharge summary 03-05-2025 Note Date & Type Note Facility 03-05-2025 Discharge summary [facility] Radiology Diagnostic study note 03-05-2025 Note Date & Type Note Facility 03-05-2025 Radiology Diagnostic study note [facility] Imaging Services [address] [place] [address] Orb Sella Post Fossa Ear w/o MR#: [id number] Acct: [id number] Name: TRACEY TURPIN Rep #: [id number] : 1970 M 54 From: Reyes Baires MD PCP: Dr. David Lai MD Status: REG E R Study:Orb Sella Post Fossa Ear w/o Date of Ex am: 03/05/25 Exam# [id number] Ordering Dr: Andree Jean MD PROCEDURE: ORB SELLA POST FOSSA EAR W/O 03/05/2025 REASON FOR EXAM: ACUTE VERTIGO, CHRONIC LEFT EAR SX TECHNIQUE: ORB SELLA POST FOSSA EAR W/O CONTRAST: None One or more dose reduction techniques were used (e.g., Automated exposure control, adjustment of the mA and/or kV according to patient size, use of iterative reconstruction technique). RADIATION DOSE SUMMARY: CTDlvol: 67.58 mGy DLP: 734.52 mGycm COMPARISON: None FINDINGS: Globes: Unremarkable Extraocular Muscles: Unremarkabl Orbits: Unremarkable The mastoid bones are unremarkable. The middle ear cavity is unremarkable. Bones: Unremarkable Other: Visualized paranasal sinuses and intracranial structures: Unremarkable CT/Orb Sella Post Fossa Ear w/o IMPRESSION: No acute abnormality is seen. Reading Location: [place] [address] CC: Dr. Joseluis Jean MD; Dr. David Lai MD ~ Acupuncture Physician: Signed [facility] Discharge summary Note Date & Type Note Facility Discharge summary Note Date/Time March 05, 2025 10:30am [facility] Medical Records Department [address] [place] [address] Emergency Department Summary 03/05/25 MR#: [id number] Acct: [id number] Name: TRACEY TURPIN Rep #:[id number] : 1970 54 From: Joseluis Jean MD PCP: Dr. David Lai MD Status:REG E R Location: ED HPI History of Present Illness Chief Complaint: Abd Pain Informant: patient, spouse/S.O. 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 He is a fairly poor informant. He denies having any abdominal pain. No diarrhea, no fevers or chills, no known sick contacts, no suspicious food intake and no travel out of the area. He does not offer any other information but after performing ROS, it seems that he has been nauseated off and on for the past 9 days, and has been having episodes of dizziness where he feels like things are spinning and he is off balance and that has been worse for the past 2 days and linked to the episodes of nausea and vomiting. As I first evaluated him he is vomiting, and confirms that the dizziness was more prominent right then. Some positions are worse than others but he cannot remember exactly how or what ones. He states that he has had some left ear discomfort since last winter. [facility] Medical History no medical history Home Medications ?Medication ?Instructions ?Recorded ?Last Taken ?Type amoxicillin 875 mg-potassium 875 mg PO Q12H #20 TABLET S 03/05/25 Unknown Rx clavulanate 125 mg tablet meclizine 25 mg tablet 25 mg PO TID PRN dizziness # 20 tabs 03/05/25 Unknown Rx multivitamin 1 tab PO DAILY 03/05/25 Unkn own History promethazine 25 mg tablet 25 mg PO Q6H PRN PRN Nausea #15 03/05/25 Unknown Rx TABLETS sertraline 25 mg tablet (Zoloft) 25 mg PO DAILY Unknown History Allergy/AdvReac Type Severity Reaction Status Date / Time No Known Allergies Allergy Verified 03/05/25 06:24 Social History Smoking Status: Never smoker ROS ROS ED Constitutional Constitutional ED: Denies chills or fever(s) Eyes Eyes: Denies change in vision or diplopia ENT ENT ED: Reports other Details: Intermittent dizziness. Left ear discomfort but denies pain or discharge. Sometimes has trouble hearing out of the left ear. ; Denies ear pain, rhinorrhea or sore throat Cardiovascular Cardiovascular: Denies chest pain or palpitations Respiratory/Chest Respiratory/Chest: Denies cough or dyspnea Gastrointestinal Gastrointestinal: Reports nausea and vomiting; Denies abdominal pain or diarrhea Genitourinary Genitourinary ED: Denies dysuria or hematuria Musculoskeletal Musculoskeletal: Denies back pain or neck pain Integumentary Denies abscess or rash Neurologic Neurologic: Reports as per HPI, abnormal gait, abnormal hearing, disequilibrium and dizziness; Denies headache(s), paresthesias or weakness Psychiatric Psychiatric: Denies anxiety or suicidal thoughts EXAM Physical Exam Const Vital Signs: 03/05/25 06:19 03/05/25 08:19 Temperature 98.0 F Temperature Source Oral Pulse Rate 53 L 50 L Respiratory Rate 16 Blood Pressure 102/73 96/47 L Blood Pressure Mean 82 63 Pulse Ox 100 Oxygen Delivery Method Room Air Positive well nourished and well developed General Appearance ED: well developed and NAD HEENT Reports moist mucous membranes normocephalic and atraumatic Eyes PERRL and EOMs intact bilaterally Eyes Narrative: No direction change nystagmus but there is right horizontal nystagmus. No vertical or rotatory nystagmus. Visual dominguez are intact. Neck full ROM and supple Resp normal respiratory effort and clear to auscultation bilaterally Cardio regular rate, regular rhythm and no murmurs Rate: Negative for bradycardia or tachycardic GI non-tender and non-distended Auscultation: normoactive bowel sounds Palpation: soft Back/Spine no CVA tenderness General Back: other FROM Extremity normal to inspection General Extremety ED: Negative for edema, pulses abnormal or tenderness General Extremity: Negative for edema or pulses abnormal Neuro oriented x3, CN's II-XII intact bilaterally and no sensory deficits noted Neuro Narrative: Abnormal jolt test. Normal skew test. Normal ssiela-vn-[id number] and stbx-[id number] bilaterally. Sensorium / Orientation: awake and alert Motor Exam: strength 5/5 throughout Psych mental status grossly normal Skin no rashes or lesions noted and no wounds MDM MDM MDM Narrative Medical decision making narrative: Patient seems to be having peripheral vertigo, and chronic left ear symptoms although he is not having pain right now, his left TM looks like he could have an effusion and there is some erythema which may indicate infection. Given the chronicity of the symptoms I did a CT, I reviewed the images and the results which I agree with, it is unremarkable. In the meantime, labs were obtained which were unremarkable and he was given IV Zofran, meclizine, and on reevaluation he is not really not feeling any better even though he is not vomiting anymore. Therefore he was additionally given some benzodiazepine and Reglan IV along with some IV fluids because of vomiting for couple days and family concerned about him being a little dehydrated; he was a little bit prerenal. The medicines and fluids really helped him feel better after this andhe is able to move around without feeling vertiginous. When I spoke with the family about all of this and my recommendation that he be referred to otolaryngology, at this point they state that his doctor has been making appointments for ENT but they keep getting canceled and moved, he was supposed to have an appointment tomorrow but it got moved to next week, the same day thathis doctor has apparently set him up for an MRI, presumably of the brain. At this time I think reasonable to treat him empirically for a possible left otitismedia given the asymmetry of the TM given its appearance, as well as symptomatictreatment for the vertigo and having him see ENT next week as scheduled. Also will prescribe him some promethazine for nausea. Lab Data Attestation: I reviewed the patient's lab results. Labs: Laboratory Results - last 24 hr 03/05/25 05:45 WBC 8.6 RBC 5.46 Hgb 16.0 Hct 46.3 MCV 84.8 MCH 29.3 MCHC 34.6 RDW Std Deviation 38.7 RDW Coeff of Regina 12.6 Plt Count 182 MPV 10.4 Immature Gran % (Auto) 0.200 Neut % (Auto) 67.5 Lymph % (Auto) 25.1 Faulkner % (Auto) 6.7 Eos % (Auto) 0.3 Baso % (Auto) 0.2 Absolute Neuts (auto) 5.8 Absolute Lymphs (auto) 2.16 Nucleated RBC % 0 Sodium 137 Potassium 4.0 Chloride 100 Carbon Dioxide 23.6 Anion Gap 13 BUN 21 H Creatinine 0.93 Estim Creat Clear Calc 76.03 Est GFR (MDRD) Non-Af 97 BUN/Creatinine Ratio 22.4 H Glucose 105 H Calcium 10.0 Radiography Diagnostic Testing: Clinical Impression(s) from Imaging Studies CT Orbit Sella Inner 03/05/25 07:16 IMPRESSION: No acute abnormality is seen. Reading Location: [place] [id number] Discharge Plan Triage Chief Complaint: Abd Pain ED Provider: Joseluis Jean Dx/Rx/DC Orders Clinical Impression: Peripheral vertigo involving left ear, Acute left otitis media, Mild dehydration Instructions: Vertigo Inner Ear Problems, ED Otitis Media Adult Prescriptions: New meclizine 25 mg tablet 25 mg PO TID PRN (Reason: dizziness) Qty: 20 0RF promethazine 25 mg tablet 25 mg PO Q6H PRN PRN (Reason: Nausea) Qty: 15 0RF amoxicillin-pot clavulanate 875-125 mg tablet 875 mg PO Q12H Qty: 20 0RF No Action sertraline [Zoloft] 25 mg tablet 25 mg PO DAILY multivitamin Tablet 1 tab PO DAILY Primary Care Provider: David Lai Referrals: David Lai DO [Primary Care Provider] - (and ENT as scheduled) Print Language: Japanese Disposition Disposition: Home, Self Care What to do if you have Problems For any increased pain, shortness of breath, bleeding, nausea or vomiting, chestpain, or any unexpected problems, contact your Primary Care Provider. Call [facility] ([phone]) or report to the closest Emergency Room. Call 911 if necessary. 03/05/25 1030 <Electronically signed by Joseluis Jean MD> Cosigner Signature (if applicable): CC: Dr. David Lai MD ~ Signed [facility] Work Phone: Evaluation note Note Date & Type Note Facility Evaluation note No assessment information availa ble [facility] Work Phone: Chief Complaint and Reason for Visit Chief Complaint Admit Date ABDOMINAL PAIN March 05, 2025 6: 18am Advance Directives No Advanced Directives Records Found Advance Directive Response Recorded Date/ Time Do you have a Healthcare Power of Financing Analyst? No March 05, 2025 6:25am Summary Purpose Family History No Family History Records FoundNo Family History Records Found Additional Source Comments Care Teams (unrecognized sec tion and content) Team Status: Active Member Role/Relationship Status Dates Dr. David Lai DO Primary Care Provider Active Team Status: Inactive Member Role/Relationship Status Dates Dr. David Lai DO Primary Care Provider Active Start: March 05, 2025 End: March 05, 2025 Dr. Joseluis Jean MD Emergency Provider Active Start: March 05, 2025 End: March 05, 2025 Goals (unrecognized section and content) Goals may be documented in a n alternate section (unrecognized sect ion and content) No Status Records FoundNo Status Records Found INFORMATION SOURCE (unrecogn ized section and content) DATE CREATED AUTHOR 03/05/2025 [facility] DATE CREATED AUTHOR 'S LAVON ATION 03/08/2025 [facility] FOR RECORDS PERTAINING TO PATIENTS WHO ARE OR HAVE BEEN ENROLLED IN A CHEMICAL DEPENDENCY/SUBSTANCEABUSE PROGRAM, SOME INFORMATION MAY BE OMITTED. This clinical summary was aggregated from multiple sources. Caution should be exercised in using it in the provision of clinical care. This summary normalizes information from multiple sources, and as a consequence, information in this document may materially change the coding, format and clinical context of patient data. In addition, data may be omitted in some cases. CLINICAL DECISIONS SHOULD BE BASED ON THE PRIMARY CLINICAL RECORDS. [facility]. provides no warranty or guarantee of the accuracy or completeness of information in this document.
[2025-03-11 05:47] LABS: Hematocrit 44.4 % (40-54); Hemoglobin 15.7 g/dL (13.0-16.5); Immature Granulocytes Count 0.110 X10^3/uL (0.0-0.0); Mean Corp Hgb Conc 35.4 g/dL (32-36); Mean Corpuscular Volume 84.6 fL (80-94); Mean Platelet Vol. 10.3 fl (6.2-12.0); NRBC Flagged by Analyzer 0 % (0-5); Platelet Count 170 K/mm3 (150-450); RBC Distribution Width CV 12.0 % (11.6-14.6); RBC Distribution Width SD 36.4 fl (35.1-43.9); Red Blood Count 5.25 M/mm3 (4.6-6.2); White Blood Count 15.6 K/mm3 (4.4-11.0)
[2025-03-11 05:57] LABS: Anion Gap 18 (5-15); BUN 20 mg/dL (4-19); BUN/Creat Ratio 18.3 RATIO (10-20); Calcium,Total 9.7 mg/dL (7.6-11.0); Carbon Dioxide 20.4 mmol/L (21.0-32.0); Chloride 100 mmol/L (98-108); Estimated Creatinine Clearance 64.87 ml/min (50-250); Glucose 183 mg/dL (70-99); Potassium 4.2 mmol/L (3.3-5.1)
[2025-03-11 06:03] LABS: Prothrombin Time (Protime)PT. 13.7 SECONDS (11.7-14.9)
[2025-03-11 06:04] LABS: Partial Thromboplast Time 26.1 Seconds (24.1-36.2)
[2025-03-11] MEDS: Nicardipine HCl-0.9% Sod Chlor 20 MG/200 ML IV.SOLN 50 MG CONT INF (06:06)
[2025-03-11] MEDS: fentaNYL 100 MCG/2 ML Ampul 25 MCG IV (06:14)
--- NOTE | 2025-03-11 07:03 | RAD_ITS ---
PROCEDURE: CHEST 1 VIEW (PORTABLE) 03/11/2025 REASON FOR EXAM: ETT OG PLACEMENT TECHNIQUE: Frontal view of the chest. COMPARISON: None FINDINGS: Hardware: The tip of the endotracheal tube is at 5 cm proximal the araceli. The tip of the nasogastric tube is within the body of the stomach. Heart: The heart is not enlarged. Lungs: The lungs are clear. Bones: Healed right rib fractures. Other: RAD/Chest 1 View (Portable) IMPRESSION: The tip of the endotracheal tube is at 5 cm proximal to the araceli. The tip of the nasogastric tube is in the body of the stomach. The lungs are clear. Healed rib fractures. Reading Location: [facility]
[2025-03-11] MEDS: Propofol 10MG/Ml 1,000 MG/100 ML Bottle 3.9 MG CONT INF (07:15)
--- NOTE | 2025-03-11 07:22 | ED.RN ---
called report to [facility], spoke with Melissa. Nora arranging transport at this time for quicker ETA.
[2025-03-11] MEDS: Nicardipine HCl-0.9% Sod Chlor 20 MG/200 ML IV.SOLN 100 MG CONT INF (07:56)
--- NOTE | 2025-03-11 07:59 | PCA ---
CALLED [facility] @ 626 SINCE PHYSICIANS COULDNT TAKE THE PATIENT SINCE HE WAS NEWLY TUBED.
[2025-03-11] MEDS: Nicardipine HCl-0.9% Sod Chlor 20 MG/200 ML IV.SOLN 75 MG CONT INF (08:47)
[2025-03-11 10:26] LABS: CPK Total, Creatine Kinase 44 U/L (24-195); Triglycerides 142 mg/dL
== END 2025-03-11 08:58 | disposition short-term general hospital (02) ==
PROVIDERS: Emergency Provider Emergency Medicine; PCP Family Medicine; Visit Provider Emergency Medicine
DX: I62.9 Nontraumatic intracranial hemorrhage, unspecified (principal); R51.9 Headache, unspecified; Z79.899 Other long term (current) drug therapy; F32.A Depression, unspecified
CPT/HCPCS: 31500; 51702; 70450; 71045; 80048; 82550; 84478; 85025; 85610; 85730; 94002; 96365; 96366; 96368; 96375; 99252; 99285; A4216; G0463; J2405